=== PATIENT | female | born 1965 | race Caucasian/White ===

== ENCOUNTER 2017-10-15 11:17 | Emergency (ER) | payer OTHER ==
[~2017-10-15] VITALS: Ht 165.1 cm; Wt 60.8 kg
[2017-10-15 11:28] VITALS: BP 133/98
--- NOTE | 2017-10-15 11:32 | NUR ---
c/o coccyx ache/dull pain radiating ble x month----paresthesia to ble denies recent injury ambulatory with steady gait---LS CLEAR THROUGHOUT, BS ACTIVE X4, ABD SOFT AND NON TENDER. FULL ROM AND STRENGTH IN ALL EXTREMITIES. PAPABLE PEDAL PULSES. ER MD MADE AWARE, WILL CONTINUE TO MONITOR tardive dyskinesia pt relates to pain and bipolar hx---bipolar, chronic back pain, ovarian cyst rx---ibuprofen, non compliant other meds
--- NOTE | 2017-10-15 11:38 | NUR ---
PT AMBULATED TO ER BED 04
--- NOTE | 2017-10-15 11:39 | NUR ---
Patient being evaluated by physician at bedside.
[2017-10-15] MEDS ORDERED: LACTULOSE 20 GM/30 ML UDC PO ONE (11:50)
[2017-10-15] MEDS ORDERED: MORPHINE SULFATE 2 MG/ML SYR IM ONE (11:50)
[2017-10-15] MEDS ORDERED: KETOROLAC 60 MG/2 ML VIAL IM ONE (11:50)
[2017-10-15 12:23] LABS: APPEARANCE,URINE CLEAR (CLEAR); BILIRUBIN,URINE 1+ (NEGATIVE); BLOOD, URINE 1+ (NEGATIVE); COLOR,URINE YELLOW (YELLOW); LEUKOCYTE ESTERASE ,URINE NEGATIVE (NEGATIVE); NITRITE, URINE NEGATIVE (NEGATIVE); PH,URINE 5.5 (5.0-9.0); UGLUCOSE NEGATIVE (NEGATIVE)
--- NOTE | 2017-10-15 12:30 | NUR ---
PT TO X RAY IN STABLE CONDITION VIA W/C
[2017-10-15 12:31] LABS: RBC,URINE 11-20 (MOD) /HPF (0-5)
--- NOTE | 2017-10-15 13:05 | NUR ---
Deidra alberts in [facility] - 10/15/17 at 1313 by [facility] Patient being evaluated by physician at bedside.
--- NOTE | 2017-10-15 13:05 | NUR ---
Patient discharged with v/s stable. Written and verbal after care instructions given and explained. Patient alert, oriented and verbalized understanding of instructions. Ambulatory with steady gait. All questions addressed prior to discharge. ID band removed. Patient advised to follow up with PMD. Rx of LACTULOSE, VOLTAREN given. Patient educated on indication of medication including possible reaction and side effects. Opportunity to ask questions provided and answered.
[2017-10-15 13:06] VITALS: BP 136/72
== END 2017-10-15 13:05 | disposition home or self-care (01) ==
LOC: MED 11:17
DX: S39.92XA Unspecified injury of lower back, initial encounter (principal); K59.00 Constipation, unspecified; F25.0 Schizoaffective disorder, bipolar type; G89.29 Other chronic pain; Z88.0 Allergy status to penicillin; W18.30XA Fall on same level, unspecified, initial encounter; Y93.89 Activity, other specified; Y92.89 Other specified places as the place of occurrence of the external cause; Y99.8 Other external cause status
CPT/HCPCS: 74021; 81001; 81025; 87086; 96372; 99285; J1885; J2270